=== PATIENT | female | born 1970 | race Caucasian/White ===

== ENCOUNTER 2016-08-09 21:08 | Emergency (ER) | payer OTHER ==
[~2016-08-09 21:08] MED LIST: ASPIRIN EC81 MG PO; HYDROCHLOROTHIA25 MG PO; TENORMIN 25 MG25 MG PO; ZESTRIL 40 MG T40 MG PO; ZYRTEC10 MG PO
[2016-08-09 23:08] LABS: HEMOGLOBIN 12.4 gm/dl (12.3-15.3); RED BLOOD COUNT 4.86 M/UL (4.00-5.10); WHITE BLOOD COUNT 3.8 K/UL (4.5-11.0)
[2016-08-09 23:26] LABS: BUN/CREATININE RATIO 10 (0-10)
== END 2016-08-10 05:25 | disposition home or self-care (01) ==
LOC: ER1 21:08
PROVIDERS: Emergency Medicine
DX: J45.909 Unspecified asthma, uncomplicated (principal); B34.9 Viral infection, unspecified; I10 Essential (primary) hypertension; Z88.0 Allergy status to penicillin; Z88.1 Allergy status to other antibiotic agents; Z88.8 Allergy status to other drugs, medicaments and biological substances
CPT/HCPCS: 36415; 80053; 81001; 83605; 83690; 83880; 84484; 84703; 85025; 85379; 87040; 87086; 93005; 94640; 94664; 96361; 96374; 99284; J2930; J7030; J7050; Q9963

== ENCOUNTER 2016-08-11 20:53 | Emergency (ER) | payer OTHER ==
[2016-08-11 22:53] LABS: HEMOGLOBIN 12.5 gm/dl (12.3-15.3); RED BLOOD COUNT 4.88 M/UL (4.00-5.10); WHITE BLOOD COUNT 4.6 K/UL (4.5-11.0)
== END 2016-08-12 01:15 | disposition home or self-care (01) ==
LOC: ER1 20:53
PROVIDERS: Family Medicine
DX: J11.1 Influenza due to unidentified influenza virus with other respiratory manifestations (principal); Z88.0 Allergy status to penicillin; Z88.8 Allergy status to other drugs, medicaments and biological substances
CPT/HCPCS: 36415; 71010; 80053; 85025; 87040; 87081; 87880; 93005; 94664; 99284

== ENCOUNTER 2016-08-20 00:33 | Emergency (ER) | payer OTHER ==
[2016-08-20 05:55] LABS: HEMOGLOBIN 12.7 gm/dl (12.3-15.3); RED BLOOD COUNT 5.03 M/UL (4.00-5.10); WHITE BLOOD COUNT 10.8 K/UL (4.5-11.0)
[2016-08-20 05:58] LABS: BUN/CREATININE RATIO 9 (0-10)
== END 2016-08-20 07:15 | disposition home or self-care (01) ==
LOC: ER1 00:33
PROVIDERS: Family Medicine
DX: J45.909 Unspecified asthma, uncomplicated (principal); E87.6 Hypokalemia; Z88.0 Allergy status to penicillin
CPT/HCPCS: 36415; 71020; 80053; 85025; 94640; 94664; 96365; 96375; 99285; J0696; J2930; J7050

== ENCOUNTER 2016-10-01 08:22 | Emergency (ER) | payer OTHER ==
[2016-10-01 09:18] LABS: HEMOGLOBIN 11.7 gm/dl (12.3-15.3); RED BLOOD COUNT 4.59 M/UL (4.00-5.10); WHITE BLOOD COUNT 7.7 K/UL (4.5-11.0)
[2016-10-01 09:30] LABS: BUN/CREATININE RATIO 11 (0-10)
== END 2016-10-01 16:40 | disposition home or self-care (01) ==
LOC: ER1 08:22
PROVIDERS: Family Medicine
DX: R10.31 Right lower quadrant pain (principal); R10.32 Left lower quadrant pain; G47.33 Obstructive sleep apnea (adult) (pediatric); Z90.49 Acquired absence of other specified parts of digestive tract; Z88.0 Allergy status to penicillin; Z88.1 Allergy status to other antibiotic agents; Z79.82 Long term (current) use of aspirin; Z79.899 Other long term (current) drug therapy
CPT/HCPCS: 80053; 81001; 83605; 83690; 84703; 85025; 87086; 99284; J7050; Q9962

== ENCOUNTER 2016-10-20 03:24 | Emergency (ER) | payer OTHER ==
[2016-10-20 04:17] LABS: HEMOGLOBIN 11.4 gm/dl (12.3-15.3); RED BLOOD COUNT 4.52 M/UL (4.00-5.10); WHITE BLOOD COUNT 8.2 K/UL (4.5-11.0)
[2016-10-20 04:48] LABS: BUN/CREATININE RATIO 10 (0-10)
== END 2016-10-20 08:35 | disposition home or self-care (01) ==
LOC: ER1 03:24
PROVIDERS: Family Medicine
DX: R07.9 Chest pain, unspecified (principal); R11.0 Nausea; R42 Dizziness and giddiness; J45.909 Unspecified asthma, uncomplicated; Z79.82 Long term (current) use of aspirin; Z79.899 Other long term (current) drug therapy
CPT/HCPCS: 36415; 71020; 80053; 82550; 82553; 83874; 84484; 85025; 93005; 99285

== ENCOUNTER 2016-10-24 15:31 | Emergency (ER) | payer OTHER ==
[2016-10-24 18:39] LABS: HEMOGLOBIN 12.1 gm/dl (12.3-15.3); RED BLOOD COUNT 4.81 M/UL (4.00-5.10); WHITE BLOOD COUNT 5.9 K/UL (4.5-11.0)
[2016-10-24 18:59] LABS: BUN/CREATININE RATIO 13 (0-10)
== END 2016-10-24 22:50 | disposition home or self-care (01) ==
LOC: ER1 15:31
PROVIDERS: Student in an Organized Health Care Education/Training Program
DX: D25.9 Leiomyoma of uterus, unspecified (principal); R07.89 Other chest pain; K76.0 Fatty (change of) liver, not elsewhere classified; K57.90 Diverticulosis of intestine, part unspecified, without perforation or abscess without bleeding; I10 Essential (primary) hypertension; J45.909 Unspecified asthma, uncomplicated; I51.9 Heart disease, unspecified; Z90.49 Acquired absence of other specified parts of digestive tract; Z87.891 Personal history of nicotine dependence; Z88.0 Allergy status to penicillin; Z88.1 Allergy status to other antibiotic agents; Z88.8 Allergy status to other drugs, medicaments and biological substances
CPT/HCPCS: 36415; 71260; 80053; 81001; 82550; 82553; 83690; 83874; 84484; 85025; 85379; 87086; 93005; 99284; J7030; J7050; Q9963

== ENCOUNTER 2021-02-07 05:09 | Emergency (ER) | payer OTHER ==
[~2021-02-07 05:09] MED LIST changes: +ATENOLOL25 MG PO; +BACTRIM DS TAB1 EACH PO; +KEFLEX CAP 500500 MG PO; +NORCO 5-325 TA1 EACH PO; +OMNICEF 300 MG300 MG PO
[2021-02-07 05:57] LABS: HEMOGLOBIN 13.9 gm/dl (12.3-15.3)
[2021-02-07 07:06] LABS: BUN/CREATININE RATIO 17 (0-10)
== END 2021-02-07 10:05 | disposition home or self-care (01) ==
LOC: ER1 05:09
PROVIDERS: Physician Assistant
DX: R07.89 Other chest pain (principal); J45.909 Unspecified asthma, uncomplicated; I10 Essential (primary) hypertension; I25.10 Atherosclerotic heart disease of native coronary artery without angina pectoris; Z20.822 Contact with and (suspected) exposure to COVID-19
CPT/HCPCS: 36415; 71045; 80053; 82550; 82553; 83874; 83880; 84484; 84702; 85025; 85379; 85610; 85730; 93005; 99285; Q9967; U0002

== ENCOUNTER 2021-03-04 06:36 | Emergency (ER) | payer OTHER ==
[2021-03-04 07:37] LABS: HEMOGLOBIN 13.2 gm/dl (12.3-15.3); RED BLOOD COUNT 4.54 M/UL (4.00-5.10); WHITE BLOOD COUNT 5.4 K/UL (4.5-11.0)
[2021-03-04 08:08] LABS: BUN/CREATININE RATIO 10 (0-10)
[2021-03-04] MEDS ORDERED: BUSPIRONE HCL5 MG PO (11:24)
[2021-03-04] MEDS ORDERED: PROTONIX40 MG PO (11:24)
== END 2021-03-04 11:50 | disposition home or self-care (01) ==
LOC: ER1 06:36
PROVIDERS: Physician Assistant
DX: R07.2 Precordial pain (principal); F41.9 Anxiety disorder, unspecified; I10 Essential (primary) hypertension; J45.909 Unspecified asthma, uncomplicated; Z90.49 Acquired absence of other specified parts of digestive tract; Z88.0 Allergy status to penicillin; Z79.899 Other long term (current) drug therapy
CPT/HCPCS: 71045; 80053; 81001; 82550; 82553; 83690; 83874; 84439; 84443; 84484; 84703; 85025; 93005; 99285

== ENCOUNTER 2021-04-02 20:23 | Emergency (ER) | payer OTHER ==
[~2021-04-02 20:23] MED LIST changes: +BUSPIRONE HCL5 MG PO; +PROTONIX40 MG PO
[2021-04-02 21:32] LABS: HEMOGLOBIN 14.4 gm/dl (12.3-15.3); RED BLOOD COUNT 5.06 M/UL (4.00-5.10)
[2021-04-02 21:51] LABS: BUN/CREATININE RATIO 12 (0-10)
[2021-04-03] MEDS ORDERED: ZOFRAN ODT 4 MG4 MG GT (03:33)
== END 2021-04-03 03:55 | disposition home or self-care (01) ==
LOC: ER1 20:23
PROVIDERS: Family Medicine
DX: R11.2 Nausea with vomiting, unspecified (principal); R19.7 Diarrhea, unspecified; I10 Essential (primary) hypertension; J45.909 Unspecified asthma, uncomplicated; Z20.822 Contact with and (suspected) exposure to COVID-19
CPT/HCPCS: 71045; 80053; 81001; 82550; 82553; 83615; 83690; 83874; 84484; 84703; 85025; 86140; 93005; 99284; U0002

== ENCOUNTER 2021-05-11 06:50 | Emergency (ER) | payer OTHER ==
[~2021-05-11 06:50] MED LIST changes: +ZOFRAN ODT 4 MG4 MG GT
[2021-05-11 07:37] LABS: HEMOGLOBIN 13.5 gm/dl (12.3-15.3); RED BLOOD COUNT 4.92 M/UL (4.00-5.10); WHITE BLOOD COUNT 5.9 K/UL (4.5-11.0)
[2021-05-11 08:03] LABS: BUN/CREATININE RATIO 11 (0-10)
[2021-05-11] MEDS ORDERED: PROTONIX40 MG PO (10:00)
== END 2021-05-11 11:00 | disposition home or self-care (01) ==
LOC: ER1 06:50
PROVIDERS: Nurse Practitioner
DX: R10.13 Epigastric pain (principal); R07.89 Other chest pain; R10.816 Epigastric abdominal tenderness; R51.9 Headache, unspecified; Z20.822 Contact with and (suspected) exposure to COVID-19; I10 Essential (primary) hypertension; E66.9 Obesity, unspecified; J45.909 Unspecified asthma, uncomplicated; Z90.49 Acquired absence of other specified parts of digestive tract; Z88.1 Allergy status to other antibiotic agents; Z88.0 Allergy status to penicillin; Z88.8 Allergy status to other drugs, medicaments and biological substances
CPT/HCPCS: 71045; 80053; 81001; 82550; 82553; 83690; 83874; 84484; 85025; 93005; 99284; Q9967; U0002

== ENCOUNTER → 2021-05-20 | Outpatient (CLI) | payer OTHER | LOC: HEART 5 08:58 | DX: I47.1 Supraventricular tachycardia (principal); I10 Essential (primary) hypertension; I08.1 Rheumatic disorders of both mitral and tricuspid valves | CPT/HCPCS: 93306 ==

== ENCOUNTER 2021-06-02 05:09 | Emergency (ER) | payer OTHER ==
[2021-06-02 10:25] LABS: HEMOGLOBIN 12.8 gm/dl (12.3-15.3); RED BLOOD COUNT 4.39 M/UL (4.00-5.10); WHITE BLOOD COUNT 8.5 K/UL (4.5-11.0)
[2021-06-02] MEDS ORDERED: PREDNISONE20 MG PO (10:35)
[2021-06-02] MEDS ORDERED: ERYTHROMYCIN500 MG PO (10:35)
[2021-06-02 11:01] LABS: BUN/CREATININE RATIO 15 (0-10)
== END 2021-06-02 10:55 | disposition home or self-care (01) ==
LOC: ER1 05:09
PROVIDERS: Physician Assistant
DX: J45.901 Unspecified asthma with (acute) exacerbation (principal); R30.0 Dysuria; I10 Essential (primary) hypertension; K21.9 Gastro-esophageal reflux disease without esophagitis; Z20.822 Contact with and (suspected) exposure to COVID-19
CPT/HCPCS: 36600; 71045; 80053; 81001; 82550; 82553; 82803; 83874; 84484; 84703; 85025; 87081; 87086; 87880; 93005; 94640; 99284; J2930; U0002

== ENCOUNTER 2021-07-30 03:25 | Emergency (ER) | payer OTHER ==
[~2021-07-30 03:25] MED LIST changes: +ERYTHROMYCIN500 MG PO; +PREDNISONE20 MG PO
[2021-07-30 04:21] LABS: HEMOGLOBIN 13.3 gm/dl (12.3-15.3); RED BLOOD COUNT 4.71 M/UL (4.00-5.10); WHITE BLOOD COUNT 7.3 K/UL (4.5-11.0)
[2021-07-30 04:37] LABS: BUN/CREATININE RATIO 17 (0-10)
== END 2021-07-30 09:15 | disposition home or self-care (01) ==
LOC: ER1 03:25
PROVIDERS: Family Medicine
DX: R07.89 Other chest pain (principal); M54.50 Low back pain, unspecified; E66.01 Morbid (severe) obesity due to excess calories; I10 Essential (primary) hypertension
CPT/HCPCS: 71045; 72131; 80053; 81001; 82550; 82553; 84484; 85025; 86140; 93005; 99284

== ENCOUNTER 2021-09-01 05:19 | Emergency (ER) | payer OTHER ==
[2021-09-01 07:15] LABS: HEMOGLOBIN 11.8 gm/dl (12.3-15.3); RED BLOOD COUNT 4.38 M/UL (4.00-5.10); WHITE BLOOD COUNT 6.5 K/UL (4.5-11.0)
[2021-09-01 07:47] LABS: BUN/CREATININE RATIO 13 (0-10)
[2021-09-01] MEDS ORDERED: PROVENTIL HFA6.7 GM INH (08:42)
== END 2021-09-01 11:13 | disposition home or self-care (01) ==
LOC: ER1 05:19
PROVIDERS: Nurse Practitioner
DX: J45.901 Unspecified asthma with (acute) exacerbation (principal); I10 Essential (primary) hypertension; F32.9 Major depressive disorder, single episode, unspecified; Z20.822 Contact with and (suspected) exposure to COVID-19; Z79.899 Other long term (current) drug therapy
CPT/HCPCS: 0240U; 71045; 80053; 82550; 82553; 83880; 84484; 85025; 93005; 94664; 96374; 99285; J1100; J7030; Q9967

== ENCOUNTER 2021-09-01 19:15 | Emergency (ER) | payer OTHER ==
[~2021-09-01 19:15] MED LIST changes: +PROVENTIL HFA6.7 GM INH
[2021-09-01 20:06] LABS: RED BLOOD COUNT 4.42 M/UL (4.00-5.10)
[2021-09-01 20:36] LABS: BUN/CREATININE RATIO 15 (0-10)
== END 2021-09-02 02:11 | disposition home or self-care (01) ==
LOC: ER1 19:15
PROVIDERS: Physician Assistant
DX: R07.89 Other chest pain (principal); R00.2 Palpitations; R06.02 Shortness of breath; R06.00 Dyspnea, unspecified; I10 Essential (primary) hypertension; J45.909 Unspecified asthma, uncomplicated; Z95.5 Presence of coronary angioplasty implant and graft
CPT/HCPCS: 80053; 82550; 82553; 84439; 84443; 84484; 85025; 85379; 93005; 99285